=== PATIENT | male | born 1980 | race Caucasian/White ===

== ENCOUNTER 2016-08-24 14:06 | Emergency (ER) | payer SELFPAY ==
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
[2016-08-24 14:46] LABS: % IMMATURE GRANULYOCYTES 0.9 % (0.0-1.1); ABSOLUTE IMMATURE GRANULOCYTES 0.08 10^3/uL (0.00-0.10); ADD DIFF? NO; ADD MORPH? NO; ADD SCAN? NO; ATYPICAL LYMPHOCYTE FLAG 30 (0-99); FRAGMENT RBC FLAG 0 (0-99); HEMATOCRIT 43.1 % (40.0-51.0); HEMOGLOBIN 15.2 g/dL (13.7-17.5); LEFT SHIFT FLG 10 (0-99); LIPEMIA HEMOLYSIS FLAG 90 (0-99); MEAN CELL HEMOGLOBIN 32.2 pg (27.9-34.1); MEAN CELL HEMOGLOBIN CONCENTR. 35.3 g/dL (32.4-36.7); MEAN CELL VOLUME 91.3 fL (81.5-99.8); MEAN PLATELET VOLUME 9.8 fL (8.7-11.7); PLATELET CLUMPS FLAG 10 (0-99); PLATELET COUNT 141 10^3/uL (150-400); RED BLOOD CELL COUNT 4.72 10^6/uL (4.40-6.38); RED CELL DISTRIBUTION WIDTH 11.9 % (11.5-15.2)
[2016-08-24 14:59] LABS: ANION GAP 19 mEq/L (8-16); CALCIUM 8.5 mg/dL (8.5-10.4); CARBON DIOXIDE 23 mEq/l (22-31); CHLORIDE 107 mEq/L (97-110); CREATININE 0.6 mg/dL (0.7-1.3); GLOMERULAR FILTRATION RATE > 60; GLUCOSE 89 mg/dL (70-100); POTASSIUM 3.7 mEq/L (3.5-5.2); SODIUM 149 mEq/L (134-144)
[2016-08-24 15:32] LABS: ETHANOL SERUM 485 mg/dL (0-10)
[2016-08-24 18:40] VITALS: BP 114/70; PULSE 102; RESP 16; TEMP 97.3; O2SAT 93
== END 2016-08-24 18:52 | disposition home or self-care (01) ==
DX: F10.129 Alcohol abuse with intoxication, unspecified (principal); F17.200 Nicotine dependence, unspecified, uncomplicated
CPT/HCPCS: G0480

== ENCOUNTER 2016-08-25 15:57 | Emergency (ER) | payer SELFPAY ==
[2016-08-25] MEDS ORDERED: NS 1,000 ML IV ONE ×2 (16:04)
[2016-08-25] MEDS ORDERED: LORazepam 2 MG/ML INJ IVP ONE ×2 (16:05→17:28)
[2016-08-25] MEDS ORDERED: chlordiazePOXIDE 25 MG CAP PO ONE (16:05)
--- NOTE | 2016-08-25 16:14 | EDPHY ---
General Initial Vital Signs: Initial Vital Signs Temperature (C) 37.3 C 08/25/16 16:03 Heart Rate 103 H 08/25/16 16:03 Respiratory Rate 20 08/25/16 16:03 Blood Pressure 153/105 H 08/25/16 16:03 O2 Sat (%) 93 08/25/16 16:03 O2 Delivery Mode Room Air Allergies/Adverse Reactions: No Known Allergies Allergy (Unverified 08/24/16 14:11) Home Medications: Medication Instructions Recorded NK [No Known Home Meds] 08/25/16
[2016-08-25] MEDS ORDERED: LORazepam 2 MG/ML INJ ONE (16:16)
--- NOTE | 2016-08-25 16:18 | EDPHY ---
H & P Stated Complaint: Here at ED yesterday for ETOH detox. W/D and bleeding from rectum today - Personal History Current Tetanus/Diphtheria Vaccine: Yes Current Tetanus Diphtheria and Acellular Pertussis (TDAP): Yes - Medical/Surgical History Hx Asthma: No Hx Chronic Respiratory Disease: No Hx Diabetes: No Hx Cardiac Disease: No Hx Renal Disease: No Hx Cirrhosis: No Hx Alcoholism: No Hx HIV/AIDS: No Hx Splenectomy or Spleen Trauma: No Other PMH: seizure - Social History Smoking Status: Current every day smoker HPI/ROS: Chief complaint: Alcohol withdrawal, blood in the stool and urine History of present illness: This is a 36-year-old male who presents to the emergency department with EMS for evaluation treatment of alcohol withdrawal. Patient further reports blood in his stool and urine. Patient reports his last drink was last night. He started to detox and has become tremulous. Patient has been at detox. He is feeling worse while there. While going to the bathroom today he noted streaking bright red blood in one of his stools and some bright red blood in his urine. He denies precipitating factors. He denies alleviating factors. He denies other associated signs or symptoms including no fevers, no abdominal pain, no vomiting, no melena. He has never had history of abnormal bleeding before. Review of systems: 10 point review of systems was obtained. (Elan Schmidt) - Physical Exam Exam: General Appearance: Alert, nontoxic. Eyes: Pupils equal and round no pallor or injection. ENT, Mouth: Mucous membranes moist. Respiratory: There are no retractions, lungs are clear to auscultation. Cardiovascular: Regular rate and rhythm. Gastrointestinal: Abdomen is soft and non tender, no masses, bowel sounds normal. Neurological: Alert. Strength and sensation intact and symmetrical. Patient is tremulous. Skin: Warm and dry, no rashes. Musculoskeletal: Neck is supple non tender. Extremities are symmetrical, full range of motion. Psychiatric: Patient is oriented X 3, there is no agitation. (Elan Schmidt) Constitutional: Initial Vital Signs Temperature (C) 37.3 C 08/25/16 16:03 Heart Rate 103 H 08/25/16 16:03 Respiratory Rate 20 08/25/16 16:03 Blood Pressure 153/105 H 08/25/16 16:03 O2 Sat (%) 93 08/25/16 16:03 O2 Delivery Mode Room Air Allergies/Adverse Reactions: No Known Allergies Allergy (Unverified 08/24/16 14:11) Home Medications: Medication Instructions Recorded NK [No Known Home Meds] 08/25/16 Medical Decision Making Procedures: Digital rectal exam is performed by myself, speckled bright red blood is noted, no melena (Elan Schmidt) ED Course/Re-evaluation: Patient discussed with my secondary supervising physician Dr. Deng Rodriguez. Patient presents to the emergency department reporting he is going through alcohol withdrawal. He is in detox. Further, he has noted blood in his urine and stool today. He denies other associated signs or symptoms. Blood studies are unremarkable. Hemoccult is positive, urine negative for blood. Physical exam of the rectum revealed speckled bright red blood. I do not believe patient has an acute GI bleed. Likely localized such as rectal tear or hemorrhoid. Patient has been IV hydrated and treated for his alcohol withdrawal with oral Librium and IV Ativan. He will be discharged back to detox where they are expecting him. He is asked to follow up with primary care doctor for recheck including recheck of the blood in the stool. Strict return precautions have been given. The plan has been discussed with the patient who voiced understanding and agreement with it. (Elan Schmidt) I did not see this patient while he was in the emergency department. However his care was discussed with PA while the patient was in the department. I agree with treatment plan and management (Deng Rodriguez) Differential Diagnosis: Included but not limited to alcohol intoxication, alcohol withdrawal, DTs, rectal bleeding from rectal tear, hemorrhoids, GI bleed (Elan Schmidt) - Data Points Laboratory Results: Laboratory Results 08/25/16 16:16 08/25/16 16:16 08/25/16 08/25/16 08/25/16 17:00 16:16 16:00 WBC 10.23 H 10^3/uL (3.80-9.50) RBC 4.76 10^6/uL (4.40-6.38) Hgb 15.1 g/dL (13.7-17.5) Hct 41.6 % (40.0-51.0) MCV 87.4 fL (81.5-99.8) MCH 31.7 pg (27.9-34.1) MCHC 36.3 g/dL (32.4-36.7) RDW 11.5 % (11.5-15.2) Plt Count 149 L 10^3/uL (150-400) MPV 10.6 fL (8.7-11.7) Neut % (Auto) 75.0 H % (39.3-74.2) Lymph % (Auto) 12.1 L % (15.0-45.0) [place] % (Auto) 9.7 % (4.5-13.0) Eos % (Auto) 1.1 % (0.6-7.6) Baso % (Auto) 1.3 % (0.3-1.7) Nucleat RBC Rel Count 0.0 % (0.0-0.2) Absolute Neuts (auto) 7.68 H 10^3/uL (1.70-6.50) Absolute Lymphs (auto) 1.24 10^3/uL (1.00-3.00) Absolute Monos (auto) 0.99 H 10^3/uL (0.30-0.80) Absolute Eos (auto) 0.11 10^3/uL (0.03-0.40) Absolute Basos (auto) 0.13 H 10^3/uL (0.02-0.10) Absolute Nucleated RBC 0.00 10^3/uL (0-0.01) Immature Gran % 0.8 % (0.0-1.1) Immature Gran # 0.08 10^3/uL (0.00-0.10) Sodium 134 mEq/L (134-144) Potassium 3.6 mEq/L (3.5-5.2) Chloride 95 L D mEq/L (97-110) Carbon Dioxide 27 mEq/l (22-31) Anion Gap 12 mEq/L (8-16) BUN 8 mg/dL (7-23) Creatinine 0.7 mg/dL (0.7-1.3) Estimated GFR > 60 Glucose 98 mg/dL (70-100) Calcium 9.5 mg/dL (8.5-10.4) Urine Color YELLOW Urine Appearance CLEAR Urine pH 8.0 H (5.0-7.5) Ur Specific [place] 1.004 (1.002-1.030) Urine Protein NEGATIVE (NEGATIVE) Urine Ketones NEGATIVE (NEGATIVE) Urine Blood NEGATIVE (NEGATIVE) Urine Nitrate NEGATIVE (NEGATIVE) Urine Bilirubin NEGATIVE (NEGATIVE) Urine Urobilinogen NEGATIVE EU (0.2-1.0) Ur Leukocyte Esterase NEGATIVE (NEGATIVE) Ur Culture Indicated? NOT INDICATED (NI) Urine Glucose NEGATIVE (NEGATIVE) Stool Occult Bld Scrn POSITIVE H (NEGATIVE) Medications Given: Discontinued Medications Chlordiazepoxide HCl (Librium) 25 mg PO EDNOW ONE Stop: 08/25/16 16:06 Last Admin: 08/25/16 16:20 Dose: 25 mg Sodium Chloride (Ns) 1,000 mls @ 0 mls/hr IV ONCE ONE PRN Reason: Wide Open Stop: 08/25/16 16:05 Last Admin: 08/25/16 16:21 Dose: 1,000 mls Sodium Chloride (Ns) 1,000 mls @ 0 mls/hr IV ONCE ONE PRN Reason: Wide Open Stop: 08/25/16 16:05 Last Admin: 08/25/16 16:58 Dose: 1,000 mls Lorazepam (Ativan Injection) 1 mg IVP EDNOW ONE Stop: 08/25/16 16:06 Last Admin: 08/25/16 16:21 Dose: 1 mg Lorazepam (Ativan Injection) 1 mg IVP EDNOW ONE Stop: 08/25/16 17:29 Last Admin: 08/25/16 17:33 Dose: 1 mg Departure - Departure Disposition: Home, Routine, Self-Care Clinical Impression: Alcohol withdrawal, Hematochezia Condition: Good Instructions: Alcohol Withdrawal (ED), Rectal Bleeding (ED) Additional Instructions: Follow-up with a primary care doctor this week for recheck including follow-up on the blood in your stools Use stool softener such as Colace and Metamucil If symptoms worsen or new symptoms develop return to the emergency department for recheck Referrals: NONE *PRIMARY CARE P,. [Primary Care Provider] - As per Instructions [facility] [Outside] - As per Instructions
[2016-08-25 16:20] LABS: % IMMATURE GRANULYOCYTES 0.8 % (0.0-1.1); ABSOLUTE IMMATURE GRANULOCYTES 0.08 10^3/uL (0.00-0.10); ADD DIFF? NO; ADD MORPH? NO; ADD SCAN? NO; ATYPICAL LYMPHOCYTE FLAG 20 (0-99); FRAGMENT RBC FLAG 0 (0-99); HEMATOCRIT 41.6 % (40.0-51.0); HEMOGLOBIN 15.1 g/dL (13.7-17.5); LEFT SHIFT FLG 10 (0-99); LIPEMIA HEMOLYSIS FLAG 90 (0-99); MEAN CELL HEMOGLOBIN 31.7 pg (27.9-34.1); MEAN CELL HEMOGLOBIN CONCENTR. 36.3 g/dL (32.4-36.7); MEAN CELL VOLUME 87.4 fL (81.5-99.8); MEAN PLATELET VOLUME 10.6 fL (8.7-11.7); PLATELET CLUMPS FLAG 10 (0-99); PLATELET COUNT 149 10^3/uL (150-400); RED BLOOD CELL COUNT 4.76 10^6/uL (4.40-6.38); RED CELL DISTRIBUTION WIDTH 11.5 % (11.5-15.2)
[2016-08-25 16:35] LABS: ANION GAP 12 mEq/L (8-16); CALCIUM 9.5 mg/dL (8.5-10.4); CARBON DIOXIDE 27 mEq/l (22-31); CHLORIDE 95 mEq/L (97-110); CREATININE 0.7 mg/dL (0.7-1.3); GLOMERULAR FILTRATION RATE > 60; GLUCOSE 98 mg/dL (70-100); POTASSIUM 3.6 mEq/L (3.5-5.2); SODIUM 134 mEq/L (134-144)
[2016-08-25 16:55] VITALS: RESP 18; O2SAT 96
[2016-08-25 17:10] LABS: COLOR YELLOW; LEUKOCYTE ESTERASE,URINE NEGATIVE (NEGATIVE); NITRITE,URINE NEGATIVE (NEGATIVE)
[2016-08-25 17:52] VITALS: BP 155/102; PULSE 90; TEMP 98.8
== END 2016-08-25 17:56 | disposition home or self-care (01) ==
LOC: EDUNIT#
DX: F10.239 Alcohol dependence with withdrawal, unspecified (principal); K92.1 Melena; F17.200 Nicotine dependence, unspecified, uncomplicated
CPT/HCPCS: 96374

== ENCOUNTER 2016-09-01 02:49 | Emergency (ER) | payer SELFPAY ==
[2016-09-01] MEDS ORDERED: IBUPROFEN 200 MG TAB PO ONE (02:52)
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
[2016-09-01 03:23] VITALS: TEMP 99.5; O2SAT 95
[2016-09-01] MEDS ORDERED: CHLORDIAZEPOXIDE 25MG PREPK#6 BTL TAKEHOME ONE (05:17)
[2016-09-01 05:32] VITALS: BP 133/87; PULSE 115; RESP 17
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
--- NOTE | 2016-09-01 09:43 | DX ---
Two-View Chest. Clinical Indication Trauma. Comparisons: None. 09/01/2016 0230. FINDINGS: The lungs are clear. Heart size is normal. Bones are unremarkable. Impression no acute cardiopulmonary process
== END 2016-09-01 05:36 | disposition home or self-care (01) ==
LOC: EDUNIT#
DX: S02.2XXA Fracture of nasal bones, initial encounter for closed fracture (principal); S20.219A Contusion of unspecified front wall of thorax, initial encounter; S10.93XA Contusion of unspecified part of neck, initial encounter; F17.200 Nicotine dependence, unspecified, uncomplicated; Y04.0XXA Assault by unarmed brawl or fight, initial encounter; Y93.89 Activity, other specified

== ENCOUNTER 2016-10-04 15:39 | Emergency (ER) | payer SELFPAY ==
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
[2016-10-04 15:47] VITALS: RESP 14; TEMP 98.4; O2SAT 94
[2016-10-04 16:13] VITALS: BP 140/90; PULSE 99
== END 2016-10-04 16:12 | disposition home or self-care (01) ==
LOC: EDUNIT#
DX: S60.221A Contusion of right hand, initial encounter (principal); W22.8XXA Striking against or struck by other objects, initial encounter; Y93.89 Activity, other specified

== ENCOUNTER 2017-03-04 15:46 | Emergency (ER) | payer MEDICAID ==
[2017-03-04] MEDS ORDERED: CHLORDIAZEPOXIDE 25MG PREPK#6 BTL TAKEHOME ONE (15:53)
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
[2017-03-04 16:00] VITALS: BP 135/97; PULSE 120; RESP 18; TEMP 98.6; O2SAT 92
== END 2017-03-04 16:30 | disposition home or self-care (01) ==
LOC: EDUNIT#
DX: F10.920 Alcohol use, unspecified with intoxication, uncomplicated (principal); F17.210 Nicotine dependence, cigarettes, uncomplicated

== ENCOUNTER 2017-03-30 02:04 | Emergency (ER) | payer MEDICAID ==
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
[2017-03-30 02:13] VITALS: TEMP 97.9
[2017-03-30 03:03] VITALS: BP 128/82; PULSE 106; RESP 18; O2SAT 95
== END 2017-03-30 03:03 | disposition home or self-care (01) ==
LOC: EDUNIT#
DX: S02.2XXA Fracture of nasal bones, initial encounter for closed fracture (principal); S20.212A Contusion of left front wall of thorax, initial encounter; F10.129 Alcohol abuse with intoxication, unspecified; F17.200 Nicotine dependence, unspecified, uncomplicated; S00.12XA Contusion of left eyelid and periocular area, initial encounter; Y04.2XXA Assault by strike against or bumped into by another person, initial encounter

== ENCOUNTER 2017-03-30 17:03 | Emergency (ER) | payer MEDICAID ==
[2017-03-30] MEDS ORDERED: LORazepam 1 MG TAB PO ONE (17:42)
[2017-03-30] MEDS ORDERED: CHLORDIAZEPOXIDE 25MG PREPK#6 BTL TAKEHOME ONE (17:42)
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
[2017-03-30 18:21] VITALS: BP 132/78; PULSE 101; RESP 16; TEMP 98.2; O2SAT 98
== END 2017-03-30 18:19 | disposition home or self-care (01) ==
DX: F10.230 Alcohol dependence with withdrawal, uncomplicated (principal); F17.200 Nicotine dependence, unspecified, uncomplicated